=== PATIENT | female | born 1955 | race Caucasian/White ===

== ENCOUNTER 2019-07-07 15:04 | Emergency (ER) | payer SELFPAY ==
[2019-07-07 15:14] VITALS: BP 160/126; PULSE 77; RESP 18; TEMP 36.6; O2SAT 97; BMI 20.9
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
[2019-07-07 16:51] VITALS: BP 129/87; PULSE 81; RESP 16; O2SAT 95
--- NOTE | 2019-07-08 10:33 | DCPLANNER ---
manager technical support had message to schedule a follow up appointment for patient with Dr. Espana. manager technical support called the office of Dr. Espana, spoke with Yeimy. manager technical support gave clinic patients information, a follow up appointment was scheduled for Saturday, August 24, 2019 at 11:[address] Espana. Clinic will call patient with appointment information.
--- NOTE | 2019-09-03 13:52 | DCPLANNER ---
Patient attended appointment scheduled with Dr. Espana.
== END 2019-07-07 16:51 | disposition home or self-care (01) ==
PROVIDERS: Emergency Provider Family Medicine
DX: S06.0X9A Concussion with loss of consciousness of unspecified duration, initial encounter (principal); T50.905A Adverse effect of unspecified drugs, medicaments and biological substances, initial encounter; V89.2XXA Person injured in unspecified motor-vehicle accident, traffic, initial encounter; F17.210 Nicotine dependence, cigarettes, uncomplicated
CPT/HCPCS: 12345; 99281

== ENCOUNTER → 2019-07-20 08:59 | Outpatient (BNVA) | payer SELFPAY | PROVIDERS: Visit Provider Specialist | DX: F07.81 Postconcussional syndrome (principal); V43.52XA Car driver injured in collision with other type car in traffic accident, initial encounter; Y93.9 Activity, unspecified | CPT/HCPCS: 99204 ==

== ENCOUNTER → 2019-10-13 14:10 | Outpatient (BNVA) | payer OTHER, SELFPAY | PROVIDERS: Visit Provider Specialist | DX: F07.81 Postconcussional syndrome (principal); S06.0X9A Concussion with loss of consciousness of unspecified duration, initial encounter; F17.200 Nicotine dependence, unspecified, uncomplicated; S13.4XXA Sprain of ligaments of cervical spine, initial encounter; V89.2XXA Person injured in unspecified motor-vehicle accident, traffic, initial encounter; M54.2 Cervicalgia | CPT/HCPCS: 99214 ==

== ENCOUNTER 2019-12-22 14:10 | Outpatient (CLI) | payer SELFPAY ==
--- NOTE | 2019-12-22 14:30 | CT_ITS ---
WS: [id number] CT HEAD TECHNIQUE: Noncontrast CT of the head obtained from the skullbase to the vertex. CLINICAL INFORMATION: POSTCONCUSSION SYNDROME COMPARISON: MRI October 21, 2019 DLP: 925.[address] scans at [facility] use at least one of these dose optimization techniques: automat ed exposure control; mA and/or kV adjustment per patient size (includes targeted exams where dose is matched to clinical indication); or iterative reconstruction. FINDINGS: No evidence of intracranial hemorrhage or mass effect. Ventricular system and basal cisterns are foster nt. Mild patchy small vessel changes with mild parenchymal volume loss. Small area of low-attenuation change in the left posterior frontal white matter likely due to prior ischemia or small vessel disea se. No extra-axial fluid collections. No evidence of mass or mass effect. Normal west-white different iation. Paranasal sinuses and mastoid air cells are well aerated. .Normal visualized soft tissues. CT/CT head wo con* [id number] IMPRESSION: 1. No evidence of intracranial hemorrhage or mass effect. 2. Mild small vessel changes. Mild parenchymal volume loss. 3. No acute intracranial findings.
== END 2019-12-22 14:11 | disposition home or self-care (01) ==
LOC: RADWPI 14:15
PROVIDERS: PCP Nurse Practitioner; Visit Provider Specialist
DX: F07.81 Postconcussional syndrome (principal)
CPT/HCPCS: 70450